=== PATIENT | male | born 1985 ===

== ENCOUNTER 2020-05-02 14:51 | Outpatient (REF) | payer OTHER, SELFPAY | END 2020-05-02 14:52 | disposition home or self-care (01) | LOC: HO.LAB 14:51 | PROVIDERS: Visit Provider Internal Medicine | DX: Z20.828 Contact with and (suspected) exposure to other viral communicable diseases (principal) | CPT/HCPCS: C9803; U0003 ==

== ENCOUNTER 2020-07-03 15:44 | Emergency (ER) | payer OTHER, SELFPAY ==
[2020-07-03 15:53] VITALS: BP 131/65; PULSE 74; RESP 16; TEMP 36.7; O2SAT 98; BMI 27.4
--- NOTE | 2020-07-03 17:24 | XR_ITS ---
EXAMINATION: X-RAY OF THE RIGHT HAND CLINICAL INFORMATION: 34-year-old male patient with swelling of the right hand. COMPARISON: None TECHNIQUE: 4 views of the right hand including the wrist. FINDINGS: There is considerable soft tissue swelling over the dorsum of the right hand at the level of the metacarpal heads. The bones and joints are normal. There is no evidence of fracture, dislocation, or bony destruction. XR/XR hand wrist RT IMPRESSION: Soft tissue swelling. No other findings.
--- NOTE | 2020-07-03 17:40 | ED.EXTPRO ---
HPI - Extremity Problem General Chief complaint: Extremity Injury, Upper Stated complaint: HAND SWELLING Time Seen by Provider: 07/03/20 16:55 Source: patient Mode of arrival: ambulatory Limitations: no limitations History of Present Illness HPI Narrative: Patient presents to ED for swelling and redness on the dorsal aspect of right hand only patient. Patient states last Saturday there was a splinter in the dorsal aspect of his right hand at work which he pulled out and then 2 days later started having swelling. Patient states no red streaks going up the arm or swelling of forearm and upper arm. Patient states no chest pain, shortness of breath, fever, or chills. Patient states he is not an IV drug user. Related Data Previous Rx's Medication Instructions Recorded albuterol sulfate 2 puff INHALATION Q6H PRN #18 g 07/03/20 cephalexin [Keflex] 500 mg PO QID #28 cap 07/03/20 doxycycline hyclate 100 mg PO BID #20 tab 07/03/20 naproxen 500 mg PO BID PRN #20 tab 07/03/20 Allergies Allergy/AdvReac Type Severity Reaction Status Date / Time No Known Allergies Allergy Unverified 03/10/20 19:28 [No Known Allergies*] Review of Systems Review of Systems: Yes all other systems are reviewed and are negative Constitutional: Constitutional: Reports as per HPI and Reports no additional constitutional complaints Eyes: Eyes: Reports as per HPI and Reports no additional eye complaints ENT: Reports system reviewed and no additional complaints, except as documented and Reports as per HPI Cardiovascular: Cardiovascular: Reports as per HPI and Reports no additional cardiovascular complaints Respiratory: Respiratory: Reports as per HPI and Reports no additional respiratory complaints Gastrointestinal: Gastrointestinal: Reports as per HPI and Reports no additional gastrointestinal complaints Genitourinary: Genitourinary: Reports no additional male genitourinary complaints and Reports as per HPI Musculoskeletal: Musculoskeletal: Reports no additional musculoskeletal complaints and Reports as per HPI Comments: RIGHT DORSAL ASPECT OF HAND SWELLING Neurologic: Reports system reviewed and no additional complaints, except as documented and Reports as per HPI Psychiatric: Psychiatric: Reports no additional psychiatric complaints and Reports as per HPI [facility] Past Medical History Medical History Asthma Social History Social History Advance Directives: No Advance Directives Information Provided: No Physical Exam Vital Signs: Vital Signs: Last Vital Signs Temp 98.0 F 07/03/20 15:53 Pulse 74 07/03/20 15:53 Resp 16 07/03/20 15:53 BP 131/65 07/03/20 15:53 Pulse Ox 98 07/03/20 15:53 Body Mass Index 27.4 Const: General: cooperative, healthy appearing, comfortable, no acute distress, well developed, alert, awake and Physically active Orientation/consciousness: patient oriented x3 HENMT: Head: Yes normal to inspection, Yes No palpable skull fracture present, Yes normocephalic, Yes atraumatic and No abrasion Eyes: General: appearance normal, both eyes and all related structures Neck: Neck: Yes normal visual inspection, Yes full ROM, Yes no lymphadenopathy, Yes no meningeal signs, Yes trachea midline, Yes supple and No tender Chest: Chest palpation & inspection: normal inspection of the chest and normal palpation of entire chest wall Resp: Effort & Inspection: normal respiratory effort and able to speak in complete sentences Auscultation: clear to auscultation bilaterally Cardio: Jugular venous distension: no JVD Heart sounds: S1 normal heart sound present and S2 normal heart sound present GI: Inspection: Yes normal to inspection Palpation (GI): Soft to palpation, not firm, nontender, no guarding and not rigid : General: No CVA tenderness and Yes no CVA tenderness Back/Spine/Pelvis: Back: no CVA tenderness, No CVA tenderness and No back tenderness Skin: General skin exam: no rashes or lesions noted and elasticity normal Neuro: General: patient oriented x3, gait normal, no meningeal signs and CN's II-XI intact bilaterally Cranial nerves: Yes CN's II-XII intact bilaterally Extrem: Other: RIGHT HAND POSITIVE FOR SWELLING AND REDNESS OF DORSAL ASPECT OF HAND ONLY. NEGATIVE FOR ANY REDNESS OR SWELLING OF THE PALM. PATIENT ABLE TO FLEX AND EXTEND ALL FINGERS. NEGATIVE FOR RED STREAKS GOING UP THE ARM. FOREARM IS NOT SWOLLEN, UPPER ARM/ HUMERUS NOT SWOLLEN. CAPILLARY REFILL IS INTACT. RADIAL PULSE INTACT. LEFT UPPER EXTREMITY IS NORMAL Psych: Appearance: grossly normal, well kempt and not disheveled Course Course Course Narrative: PATIENT X-RAY TO RULE OUT OSTEOMYELITIS Reevaluation(s) Reevaluation #1: PHYSICAL EXAM DOES NOT INDICATE TENOSYNOVITIS OR LYMPHANGITIS. X-RAY NEGATIVE FOR OSTEOMYELITIS. NOT SUSPECTING DVT. PATIENT WILL BE DISCHARGED WITH KEFLEX AND DOXYCYCLINE. PATIENT EDUCATED ON SIGNS OF TENOSYNOVITIS, LYMPHANGITIS, AND WORSENING CELLULITIS. PATIENT INFORMED HAVE ANY SYMPTOMS TO RETURN TO ED IMMEDIATELY. PATIENT ALSO INFORMS HAVING CHEST PAIN, SHORTNESS OF BREATH, SWELLING OF FOREARM, SWELLING OF UPPER ARM HE SHOULD RETURN TO THE ED IMMEDIATELY TO RULE OUT PE or DVT. PATIENT ALSO REQUESTED IP FOR ALBUTEROL PUMP Time: 17:55 MDM - Extremity (Nontraumatic) MDM Narrative Medical decision making narrative: cELLULITITS Discharge Plan Discharge Clinical Impression: Cellulitis Patient Disposition: Home, Self-Care Instructions: Cellulitis (ED) Additional Instructions: RETURN TO THE ED IMMEDIATELY FOR WORSENING REDNESS, DEVELOPMENT OF RED STREAKS, SWELLING OF FOREARM AND UPPER ARM, CHEST PAIN, SHORTNESS OF BREATH, INABILITY TO FLEX AND EXTEND FINGERS, OR ANY OTHER CONCERNING SYMPTOMS. Please follow-up with PCP Prescriptions: New cephalexin [Keflex] 500 mg capsule 500 mg PO QID Qty: 28 RF: 0 doxycycline hyclate 100 mg tablet 100 mg PO BID Qty: 20 RF: 0 naproxen 500 mg tablet 500 mg PO BID PRN (Reason: pain) Qty: 20 RF: 0 albuterol sulfate 90 mcg/actuation HFA aerosol inhaler 2 puff inhalation Q6H PRN (Reason: shortness of breath or wheezing) Qty: 18 RF: 0 Stand Alone Forms: Work/School Release Discharge Date/Time: 07/03/20 18:13
== END 2020-07-03 18:13 | disposition home or self-care (01) ==
PROVIDERS: Emergency Provider Emergency Medicine
DX: L03.113 Cellulitis of right upper limb (principal); M79.641 Pain in right hand; Z79.899 Other long term (current) drug therapy
CPT/HCPCS: 73110; 73130; 99283

== ENCOUNTER 2020-09-14 12:44 | Emergency (ER) | payer OTHER, SELFPAY ==
[2020-09-14 12:59] VITALS: BP 151/78; PULSE 78; RESP 18; TEMP 36.9; O2SAT 97; BMI 30.4
--- NOTE | 2020-09-14 13:30 | ED_ITS ---
HPI - Asthma General Chief Complaint: Asthma Stated Complaint: sob Time Seen by Provider: 09/14/20 13:30 History of Present Illness HPI Narrative: Patient complains that he is out of his asthma pump and has been using it off and on for several days several times a day and is now out of his pump, he is not short of breath at this moment last use of the pump was this morning He come planes also about intermittent episodes of epigastric pain which last for short while and then go away, pain is described as a burning pain and a bloated feeling after eating, he has not had that pain in over week he has no pain now he has no nausea vomiting diarrhea and he is eating and drinking normally Related Data Previous Rx's Medication Instructions Recorded albuterol sulfate 2 puff INHALATION Q6H PRN #18 g 07/03/20 cephalexin [Keflex] 500 mg PO QID #28 cap 07/03/20 doxycycline hyclate 100 mg PO BID #20 tab 07/03/20 naproxen 500 mg PO BID PRN #20 tab 07/03/20 albuterol sulfate 2 puff INHALATION Q4-6H PRN #8.5 g 09/14/20 famotidine [Pepcid] 20 mg PO BID PRN #30 tab 09/14/20 prednisone 60 mg PO DAILY 4 Days #12 tab 09/14/20 Allergies Allergy/AdvReac Type Severity Reaction Status Date / Time No Known Allergies Allergy Unverified 03/10/20 19:28 [No Known Allergies*] Review of Systems Review of Systems: Positive for intermittent wheezing as well as intermittent burning epigastric pain Negatives are no fever no chills no dizziness no weakness no chest pain no palpitations no fainting no feeling faint, no nausea vomiting or diarrhea, no leg swelling no calf pain or swelling no problems with urination no burning or frequency of urination no rash no numbness or weakness PMFSH Past Medical History Source: nursing notes reviewed Medical History Asthma Social History Social History Alcohol intake: unknown Smoking Status: Unknown if ever smoked Use of substances other than those prescribed or required for medical reasons: Yes Substance Use Type: Heroin Last Used Substance: Just Prior to Admission Advance Directives: No Advance Directives Information Provided: No Physical Exam Vital Signs: Vital Signs: Last Vital Signs Temp 98.5 F 09/14/20 12:59 Pulse 78 09/14/20 12:59 Resp 18 09/14/20 12:59 BP 151/78 H 09/14/20 12:59 Pulse Ox 97 09/14/20 12:59 Body Mass Index 30.4 General appearance no acute distress comfortable relaxed and cooperative The eyes no redness or discharge The pharynx is clear, no redness exudate or swelling, voice is normal The neck is supple, no lymphadenopathy The chest is clear with full symmetric equal breath sounds The heart rate and rhythm regular no murmur Abdomen soft nontender no rebound no guarding Extremities no edema no calf swelling or tenderness, full range of motion x4 Skin no rash Neuro no focal deficit Course Course Course Narrative: Patient is asymptomatic now and is given scripts for Pepcid and albuterol, he has no shortness of breath his lungs are clear and his oxygen and respiratory rate all normal He is advised his blood pressure was elevated and is advised to follow with [facility] doctor for further evaluation Discharge Plan Discharge Clinical Impression: Asthma Patient Disposition: Home, Self-Care Additional Instructions: We refilled her asthma pump medication, and started Pepcid which is an antacid which may be helpful for the intermittent stomach pains We started prednisone which reduces inflammation to help with her asthma Follow with primary care doctor This return any time any worse condition or any concerns Prescriptions: New prednisone 20 mg tablet 60 mg PO DAILY 4 Days Qty: 12 RF: 0 albuterol sulfate 90 mcg/actuation HFA aerosol inhaler 2 puff inhalation Q4-6H PRN (Reason: shortness of breath or wheezing) Qty: 8.5 RF: 0 famotidine [Pepcid] 20 mg tablet 20 mg PO BID PRN (Reason: acid reflux) Qty: 30 RF: 0 No Action cephalexin [Keflex] 500 mg capsule 500 mg PO QID Qty: 28 RF: 0 doxycycline hyclate 100 mg tablet 100 mg PO BID Qty: 20 RF: 0 naproxen 500 mg tablet 500 mg PO BID PRN (Reason: pain) Qty: 20 RF: 0 albuterol sulfate 90 mcg/actuation HFA aerosol inhaler 2 puff inhalation Q6H PRN (Reason: shortness of breath or wheezing) Qty: 18 RF: 0 Stand Alone Forms: Work/School Release Interventions: ED Discharge Assessment Last Done: 09/14/20 14:40 Discharge Date/Time: 09/14/20 14:41
[2020-09-14] MEDS: predniSONE 20 MG TABLET 60 MG PO (14:41)
== END 2020-09-14 14:41 | disposition home or self-care (01) ==
PROVIDERS: Emergency Provider Emergency Medicine
DX: J45.909 Unspecified asthma, uncomplicated (principal); R10.13 Epigastric pain; F11.90 Opioid use, unspecified, uncomplicated
CPT/HCPCS: 99283

== ENCOUNTER 2020-09-16 09:25 | Emergency (ER) | payer OTHER, SELFPAY ==
[2020-09-16 09:29] VITALS: PULSE 73; RESP 18; TEMP 37.5; O2SAT 99; BMI 14.6
[2020-09-16 09:33] VITALS: BP 164/91
--- NOTE | 2020-09-16 09:33 | ECG_ITS ---
Test Reason : OD Blood Pressure : / mmHG Vent. Rate : 074 BPM Atrial Rate : 074 BPM P-R Int : 210 ms QRS Dur : 098 ms QT Int : 334 ms P-R-T Axes : 047 029 048 degrees QTc Int : 370 ms Sinus rhythm with 1st degree A-V block with Premature atrial complexes Otherwise normal ECG No previous ECGs available Referred By: Estuardo Francis Electronically Signed By:YAMINI RANEGL
--- NOTE | 2020-09-16 10:04 | PC.NURSE ---
ATTEMPT TO COMPLETE EKG, PT ROLLING OVER IN BED POOPING ON FLOOR. WHEN ATTEMPT TO AID IN CLEANING PT, PT ROLLS AWAY FROM STAFF AND IS MOVING TO AIM HIS LIQUID STOOL AT MULTIPLE STAFF. PT COVERING CURTAINS, FLOORS ON PURPOSE.
--- NOTE | 2020-09-16 10:41 | PC.NURSE ---
security and language interpreter to bedside. pt refusing to leave. digital media intern to order meds and plan to speak to counselor
--- NOTE | 2020-09-16 11:12 | MHC.RECOVSUP ---
Recovery Support note: Patient is a 35 year old [place] speaking male who presented to [facility] ED due to an overdose. Patient reports taking Suboxone and is feeling severe symptoms of withdrawal. Patient reports a desire to go to detox however he is only interested in going to a local facility. Explained to patient that this may not be an option due to bed availability and that he could continue to take the Suboxone as prescribed if a bed is not secured. Patient acknowledged. This justowriter operator will refer patient to [facility], [facility].
[2020-09-16 12:00] VITALS: RESP 16
--- NOTE | 2020-09-16 12:03 | PC.NURSE ---
RECVD REPORT FROM [facility] AT 1100. PT SUPINE IN BED SLEEPING, RR EVEN UNLABORED, SKIN WPD, NAD. PT AWAITING PROVIDER RE-EVAL AND DISPO. AT 1200 PT CONTINUES TO SLEEPING, NO CHG IN PT STATUS.
[2020-09-16 12:24] VITALS: BP 188/83; PULSE 76; RESP 18; O2SAT 98
[2020-09-16 12:25] VITALS: BP 188/83; PULSE 76
[2020-09-16] MEDS: cloNIDine HCL 0.1 MG TABLET PO (12:25)
[2020-09-16 13:07] LABS: COVID-19 Test Negative (Negative)
--- NOTE | 2020-09-16 13:19 | ED_ITS ---
HPI - General Adult General Chief complaint: General Medical Stated complaint: overdose on heroin Time Seen by Provider: 09/16/20 09:33 Source: patient Mode of arrival: ambulatory Limitations: no limitations History of Present Illness HPI narrative: 35-year-old male presents with complaint of heroin overdose after family called. States that now feels like he is nauseated and has diarrhea he also uses Suboxone sometimes. Onset (ago): hour(s) Severity: moderate Relieving factors: none Exacerbating factors: none Treatments prior to arrival: none Related Data Previous Rx's Medication Instructions Recorded albuterol sulfate 2 puff INHALATION Q6H PRN #18 g 07/03/20 cephalexin [Keflex] 500 mg PO QID #28 cap 07/03/20 doxycycline hyclate 100 mg PO BID #20 tab 07/03/20 naproxen 500 mg PO BID PRN #20 tab 07/03/20 albuterol sulfate 2 puff INHALATION Q4-6H PRN #8.5 g 09/14/20 famotidine [Pepcid] 20 mg PO BID PRN #30 tab 09/14/20 prednisone 60 mg PO DAILY 4 Days #12 tab 09/14/20 Allergies Allergy/AdvReac Type Severity Reaction Status Date / Time No Known Allergies Allergy Unverified 03/10/20 19:28 [No Known Allergies*] Review of Systems Review of Systems: Constitutional: No Weight loss, No Fever, No Chills, No Night Sweats, No Fatigue, No Malaise ENT/Mouth: No Hearing loss, No Ear Pain, No Nasal Congestion, No Sinus Pain, No Hoarseness, No sore throat, No Rhinorrhea, No Swallowing Difficulty Eyes: No Eye Pain, No Swelling, No Redness, No Foreign Body, No Discharge, No Vision Changes Cardiovascular: No Chest Pain, No SOB, No Dyspnea on Exertion, No Orthopnea, No Edema, No Palpitations Respiratory: No Cough, No Sputum, No Wheezing, No Smoke Exposure, No Dyspnea Gastrointestinal: + Nausea, No Vomiting, + Diarrhea, No Constipation, No abdominal Pain, No Hematochezia, No Melena Genitourinary: no irregular bleeding, No Dysuria, No Urinary Frequency, No Hematuria, No Urinary Incontinence, No Urgency, No Flank Pain, No Urinary Flow Changes, No Hesitancy Musculoskeletal: No joint pain, No Myalgias, No Joint Swelling Skin: No Skin Lesions, No rash Neuro: No Weakness, No Numbness, No Paresthesias, No Loss of Consciousness, No Dizziness, No Headache Psych: No Anxiety/Panic, No Depression, No SI/HI/AH/VH, No Social Issues Heme/Lymph: No Bruising, No Bleeding,No Lymphadenopathy Endocrine: No Polyuria, No Polydipsia, No Temperature Intolerance Yes all other systems are reviewed and are negative [facility] Past Medical History Medical History (Updated 09/25/20 @ 20:29 by Estuardo Francis NP) Asthma Cocaine substance abuse Social History Social History Alcohol intake: unknown Smoking Status: Unknown if ever smoked Use of substances other than those prescribed or required for medical reasons: Yes Substance Use Type: Heroin Last Used Substance: Just Prior to Admission Advance Directives: No Advance Directives Information Provided: No Physical Exam Vital Signs: Vital Signs: Last Vital Signs Temp 99.5 F 09/16/20 09:29 Pulse 76 09/16/20 12:25 Resp 18 09/16/20 12:24 BP 188/83 H 09/16/20 12:25 Pulse Ox 98 09/16/20 12:24 Body Mass Index 14.6 Reviewed Const: General: cooperative and healthy appearing; No acute distress or intoxicated appearing Nutritional Appearance: average body habitus Orientation/consciousness: patient oriented x3 HENMT: Head: Yes normal to inspection Ears: hearing grossly normal bilaterally Eyes: General: appearance normal, both eyes and all related structures Visual Hyman: normal visual hyman by confrontation Neck: Neck: Yes normal visual inspection, No positive Brudzinski's sign, No positive Kernig's sign and No tender Thyroid: Thyroid normal Chest: Chest palpation & inspection: normal inspection of the chest Breast/axilla palpation: normal palpation of the breasts Resp: Effort & Inspection: normal respiratory effort Auscultation: clear to auscultation bilaterally Cardio: Jugular venous distension: no JVD Rhythm: regular rhythm Heart sounds: S1 normal heart sound present and S2 normal heart sound present GI: Inspection: Yes normal to inspection Palpation (GI): Soft to palpation Percussion: Yes normal to percussion Auscultation: normal bowel sounds : General: Yes no CVA tenderness Back/Spine/Pelvis: Back: no CVA tenderness Skin: General skin exam: no rashes or lesions noted Neuro: General: patient oriented x3 Extrem: General: Yes normal to inspection Course Course Course Narrative: Observed several hours no signs of symptoms of toxicity. Has been alert and oriented x3 has a detox services set up will go there this evening. Offers no other complaints. Stable for discharge. Medical Decision Making Lab Data Labs: Lab Results 09/16/20 Range/Units 12:42 COVID-19 ([facility]) Negative (Negative) COVID-19 Clin Com See Note Discharge Plan Discharge Clinical Impression: Heroin overdose Patient Disposition: Home, Self-Care Instructions: Adult Overdose (ED), Opioid Use Disorder (ED) Additional Instructions: Please go to detox at 18:00 as planned at [place] Your COVID test was negative today Return if any concerns or worsening symptoms Thank you Prescriptions: No Action cephalexin [Keflex] 500 mg capsule 500 mg PO QID Qty: 28 RF: 0 doxycycline hyclate 100 mg tablet 100 mg PO BID Qty: 20 RF: 0 naproxen 500 mg tablet 500 mg PO BID PRN (Reason: pain) Qty: 20 RF: 0 albuterol sulfate 90 mcg/actuation HFA aerosol inhaler 2 puff inhalation Q6H PRN (Reason: shortness of breath or wheezing) Qty: 18 RF: 0 prednisone 20 mg tablet 60 mg PO DAILY 4 Days Qty: 12 RF: 0 albuterol sulfate 90 mcg/actuation HFA aerosol inhaler 2 puff inhalation Q4-6H PRN (Reason: shortness of breath or wheezing) Qty: 8.5 RF: 0 famotidine [Pepcid] 20 mg tablet 20 mg PO BID PRN (Reason: acid reflux) Qty: 30 RF: 0 Referrals: Physician,Unknown [Primary Care Provider] - 1 day (Go to [place] today has 6 cm) Interventions: ED Discharge Assessment Last Done: 09/16/20 13:36 Discharge Date/Time: 09/16/20 13:37
--- NOTE | 2020-09-16 15:06 | MHC.RECOVSUP ---
Recovery Support note: Patient accepted to [facility]. Negative covid result faxed. N-N complete. Patient transported [place] [facility] [place].
== END 2020-09-16 13:37 | disposition home or self-care (01) ==
PROVIDERS: Nurse Practitioner Primary Care; Emergency Provider Emergency Medicine Emergency Medical Services
DX: T40.1X1A Poisoning by heroin, accidental (unintentional), initial encounter (principal); Y92.9 Unspecified place or not applicable; Z20.822 Contact with and (suspected) exposure to COVID-19
CPT/HCPCS: 36415; 87635; 93005; 99285

== ENCOUNTER 2020-12-27 07:08 | Emergency (ER) | payer OTHER, SELFPAY ==
--- NOTE | ~2020-12-27 | XR_ITS ---
EXAMINATION: XR CHEST CLINICAL INFORMATION: Dyspnea COMPARISON: 2 view chest radiographs 10/03/2017 TECHNIQUE: Portable upright AP view of the chest was obtained. FINDINGS: There are low lung volumes. The lungs are grossly clear with no airspace consolidation or definite groundglass opacity. The vascularity is normal. No pneumothorax. The costophrenic sulci are well-defined. The heart is normal in size. The hilar and mediastinal contours and bony structures are unremarkable. XR/XR chest 1V IMPRESSION: Low lung volumes. Lungs grossly clear.
--- NOTE | 2020-12-27 07:12 | ED_ITS ---
HPI - Asthma General Chief Complaint: Upper Respiratory Symptoms Stated Complaint: difficulty breathing - asthma Time Seen by Provider: 12/27/20 07:10 Source: patient and educational interpreter Mode of arrival: ambulatory Limitations: no limitations History of Present Illness HPI Narrative: 35 yo male with hx of asthma still smoking which triggered an attack last night tried neb and INH without relief complaint: asthma attack Onset (ago): day(s) (1) Severity: severe Context: smoke exposure Associated symptoms: dry cough Asthma History: childhood onset Treatments Prior to Arrival: inhaled bronchodilator Related Data Previous Rx's Medication Instructions Recorded albuterol sulfate 2 puff INHALATION Q6H PRN #18 g 07/03/20 cephalexin [Keflex] 500 mg PO QID #28 cap 07/03/20 doxycycline hyclate 100 mg PO BID #20 tab 07/03/20 naproxen 500 mg PO BID PRN #20 tab 07/03/20 albuterol sulfate 2 puff INHALATION Q4-6H PRN #8.5 g 09/14/20 famotidine [Pepcid] 20 mg PO BID PRN #30 tab 09/14/20 prednisone 60 mg PO DAILY 4 Days #12 tab 09/14/20 albuterol sulfate 2.5 mg INHALATION Q4-6H PRN #75 ml 12/27/20 prednisone 60 mg PO DAILY 5 Days #15 tab 12/27/20 Allergies Allergy/AdvReac Type Severity Reaction Status Date / Time No Known Allergies Allergy Unverified 03/10/20 19:28 [No Known Allergies*] Review of Systems Review of Systems: Constitutional : No Fever, No Chills ENT/Mouth : No Hoarseness, No sore throat, No Rhinorrhea Eyes: No Redness, No Discharge, No Vision Changes Cardiovascular : No Chest Pain, positive SOB, positive Dyspnea on Exertion, No Edema Respiratory : positive Cough, No Sputum, positive Wheezing, Gastrointestinal : No Nausea, No Vomiting, No Diarrhea, No abdominal Pain Genitourinary : No Dysuria, No Hematuria Musculoskeletal : No joint pain, No Myalgias Skin : No rash Neuro : No Weakness, No Numbness, No Headache Psych : No anxiety, depression Heme/Lymph: No Bruising, No Bleeding Endocrine : No Polyuria, No Polydipsia All other systems reviewed and are negative PMFSH Past Medical History Attestation statement: The following information was validated with the patient. Medical History Asthma Cocaine substance abuse Social History Social History (Updated 12/27/20 @ 07:24 by Renuka Wild DO) Alcohol intake: unknown Patient Tobacco Use Status: Never used Tobacco Smoked in Last 30 Days: No Use of substances other than those prescribed or required for medical reasons: No Substance Use Type: Heroin Advance Directives: No Advance Directives Information Provided: No Physical Exam Vital Signs: Vital Signs: Last Vital Signs Temp 98.7 F 12/27/20 07:23 Pulse 104 H 12/27/20 10:14 Resp 18 12/27/20 10:14 BP 159/88 H 12/27/20 10:14 Pulse Ox 95 12/27/20 09:20 Body Mass Index 31.9 Appearance: Alert. Oriented X3. Anxious mild acute distress. Eyes: Pupils equal, round and reactive to light. ENT: Pharynx normal. Neck: Normal inspection. Neck supple. CVS: tachycardic heart rate and rhythm. Pulses normal. Respiratory: pos respiratory distress short phrases, retractions tachypnea. Breath sounds diffuse insp and exp wheezes Abdomen: Soft and nontender. Skin: Skin warm and clammy. Normal skin color. Normal skin turgor. Extremities: No lower extremity edema. No calf ttp Neuro: Oriented X 3. No motor deficit. No sensory deficit. Course Course Course Narrative: still tight and wheezy repeat 5mg neb ordered will reassess afterwards the patient is refusing admission at this time ,he is mildy hypoxic, he wants to go home, alert and oriented, I offered admission but he declines we discussed the asthma and lower O2 sats 92%, the educational interpreter was present we offered admission explained he is wheezing sats are 92-94% he states he is fine and wants to leave, he is answering questions appropriately, instructed to come back at any time. MDM - Asthma MDM Narrative Medical decision making narrative: 35 yo male with hx of asthma still smoking which triggered an attack last night tried neb and INH without relief at this time hour long 10mg neb ordered, IV steroids, IV magnesium, labs/CXR - COVID swab, asthma attack likely triggered by smoking cigarettes, dispo per results and improvement Lab Data Result diagrams: 12/27/20 07:22 12/27/20 07:21 Labs: Lab Results 07/06/21 07/06/21 07/06/21 Range/Units 07:21 07:22 07:22 WBC 8.7 (4.8-10.8) X10*3/uL RBC 5.08 (4.60-5.80) X10*6/uL Hgb 14.4 (14.0-18.0) g/dl Hct 45.8 (42-52) % MCV 90.2 (80-98) fL MCH 28.3 (27.0-33.0) pg MCHC 31.4 (31.0-36.0) g/dl RDW 11.7 (11.0-16.0) % Plt Count 172 (160-400) X10*3/uL MPV 8.6 L (9.4-12.4) fL Immature Gran % (Auto) 0.3 (0.0-0.4) % Neut % (Auto) 70.3 (45-73) % Lymph % (Auto) 20.2 (20-40) % [place] % (Auto) 6.7 (2-11) % Eos % (Auto) 2.2 (0-4) % Baso % (Auto) 0.3 (0-2) % Lymph # (Auto) 1.8 (1.2-4.9) X10*3/uL [place] # (Auto) 0.6 (0.1-1.2) X10*3/uL Eos # (Auto) 0.2 (0.0-0.4) X10*3/uL Baso # (Auto) 0.0 (0.0-0.2) X10*3/uL Abs Immat Gran (auto) 0.03 (0.00-0.03) X10*3/uL Absolute Neuts (auto) 6.1 (2.0-8.3) X10*3/uL Absolute Nucleated RBC 0.000 (0.0-0.012) X10*3/uL Nucleated RBC % (auto) 0.0 (0.0-0.2) /100WBC Sodium 140 (135-145) mmol/L Potassium 3.8 (3.3-5.1) mmol/L Chloride 103 (96-108) mmol/L Carbon Dioxide 27 (22-29) mmol/L Anion Gap 14 (12-20) BUN 10 (9-16) mg/dL Creatinine 0.87 (0.5-1.4) mg/dL Estim Creat Clear Calc 131.3 Estimated GFR > 60 Random Glucose 121 H (60-115) mg/dL Calcium 9.6 (8.4-10.2) mg/dL Magnesium 1.8 (1.6-2.6) mg/dL COVID-19 ([facility]) Negative (Negative) COVID-19 Clin Com See Note Critical Care Time Critical Care Time Critical Care Time: Yes Total Critical Care Time: 60 Attestation: hour long nebs, reassessments, attempts at admission, repeat 5mg neb I attest to this time spent taking care of the patient Discharge Plan Discharge Clinical Impression: Asthma attack Qualifiers: Asthma severity: moderate Asthma persistence: persistent Qualified Code(s): J 45.41 - Moderate persistent asthma with (acute) exacerbation Patient Disposition: Home, Self-Care Instructions: Asthma (ED) Additional Instructions: return to ED for any worsening symptoms or concerns YOU WERE OFFERED ADMISSION BUT REFUSED PLEASE COME BACK AT ANY TIME Prescriptions: New albuterol sulfate 2.5 mg /3 mL (0.083 %) solution for nebulization 2.5 mg inhalation Q4-6H PRN (Reason: bronchospasm) Qty: 75 RF: 0 prednisone 20 mg tablet 60 mg PO DAILY 5 Days Qty: 15 RF: 0 No Action cephalexin [Keflex] 500 mg capsule 500 mg PO QID Qty: 28 RF: 0 doxycycline hyclate 100 mg tablet 100 mg PO BID Qty: 20 RF: 0 naproxen 500 mg tablet 500 mg PO BID PRN (Reason: pain) Qty: 20 RF: 0 albuterol sulfate 90 mcg/actuation HFA aerosol inhaler 2 puff inhalation Q6H PRN (Reason: shortness of breath or wheezing) Qty: 18 RF: 0 prednisone 20 mg tablet 60 mg PO DAILY 4 Days Qty: 12 RF: 0 albuterol sulfate 90 mcg/actuation HFA aerosol inhaler 2 puff inhalation Q4-6H PRN (Reason: shortness of breath or wheezing) Qty: 8.5 RF: 0 famotidine [Pepcid] 20 mg tablet 20 mg PO BID PRN (Reason: acid reflux) Qty: 30 RF: 0 Stand Alone Forms: Work/School Release Print Language: Arabic
[2020-12-27 07:23] VITALS: BP 165/90; PULSE 105; RESP 26; TEMP 37.1; O2SAT 90; BMI 31.9
[2020-12-27] MEDS: Albuterol Sulfate (0.083%) 2.5 MG/3 ML VIAL.NEB 10 MG INHALE (07:31)
[2020-12-27 07:32] LABS: MANUAL DIFF FLAG NO
[2020-12-27 07:33] VITALS: O2SAT 92
[2020-12-27 07:34] LABS: Basophils Percent Auto 0.3 % (0-2); Eosinophils Absolute Auto 0.2 X10*3/uL (0.0-0.4); Eosinophils Percent Auto 2.2 % (0-4); Hematocrit 45.8 % (42-52); Hemoglobin 14.4 g/dl (14.0-18.0); Imm Gran Abs Auto 0.03 X10*3/uL (0.00-0.03); Imm Gran Pct Auto 0.3 % (0.0-0.4); Lymphocytes Absolute Auto 1.8 X10*3/uL (1.2-4.9); Lymphocytes Percent Auto 20.2 % (20-40); Mean Corpuscular HGB Conc 31.4 g/dl (31.0-36.0); Mean Corpuscular Hemoglobin 28.3 pg (27.0-33.0); Mean Corpuscular Volume 90.2 fL (80-98); Mean Platelet Volume 8.6 fL (9.4-12.4); Monocytes Absolute Auto 0.6 X10*3/uL (0.1-1.2); Monocytes Percent Auto 6.7 % (2-11); Neutrophils Absolute Auto 6.1 X10*3/uL (2.0-8.3); Neutrophils Percent Auto 70.3 % (45-73); Platelet Count 172 X10*3/uL (160-400); Red Blood Count 5.08 X10*6/uL (4.60-5.80); Red Cell Distribution Width 11.7 % (11.0-16.0); White Blood Count 8.7 X10*3/uL (4.8-10.8)
[2020-12-27] MEDS: Magnesium Sulfate/H2O 2 GM/50 ML PIGGYBACK IV (07:42)
[2020-12-27] MEDS: methylPREDNISolone Sod Succ 125 MG/2 ML VIAL IVPUSH (07:42)
[2020-12-27] MEDS: 0.9 % Sodium Chloride 1,000 ML 999 ML IVCONT (07:42)
[2020-12-27 08:02] LABS: COVID-19 Test Negative (Negative)
[2020-12-27 08:11] VITALS: BP 172/108; PULSE 112; RESP 16; O2SAT 97
[2020-12-27 08:17] LABS: Anion Gap 14 (12-20); Blood Urea Nitrogen 10 mg/dL (9-16); Calcium 9.6 mg/dL (8.4-10.2); Carbon Dioxide 27 mmol/L (22-29); Chloride 103 mmol/L (96-108); Creatinine Clr Calc Pharmacy 131.3; Estimated Glomerular Filt Rate > 60; Glucose Random 121 mg/dL (60-115); Magnesium 1.8 mg/dL (1.6-2.6); Potassium 3.8 mmol/L (3.3-5.1); Sodium 140 mmol/L (135-145)
[2020-12-27 08:43] VITALS: PULSE 112; O2SAT 92
[2020-12-27] MEDS: Albuterol Sulfate (0.083%) 2.5 MG/3 ML VIAL.NEB 5 MG INHALE (08:43)
[2020-12-27 09:20] VITALS: BP 159/105; PULSE 112; RESP 20; O2SAT 95
[2020-12-27 10:14] VITALS: BP 159/88; PULSE 104; RESP 18
== END 2020-12-27 10:45 | disposition home or self-care (01) ==
PROVIDERS: Emergency Provider Emergency Medicine
DX: J45.41 Moderate persistent asthma with (acute) exacerbation (principal); R09.02 Hypoxemia; F17.210 Nicotine dependence, cigarettes, uncomplicated; Z79.899 Other long term (current) drug therapy; Z20.822 Contact with and (suspected) exposure to COVID-19
CPT/HCPCS: 36415; 71045; 80048; 83735; 85025; 87635; 94640; 94644; 96361; 96365; 96366; 96375; 99284; 99291; J2930; J3475

== ENCOUNTER 2022-03-24 16:40 | Emergency (ER) | payer MEDICAID, SELFPAY ==
--- NOTE | ~2022-03-24 | XR_ITS ---
EXAMINATION: XR CHEST CLINICAL INFORMATION: Chest discomfort COMPARISON: 12/27/2020 TECHNIQUE: 2 views of the chest were obtained. FINDINGS: No significant abnormality is noted involving the heart, lungs, mediastinum, bony thorax or soft tissues. XR/XR chest 2V IMPRESSION: Unremarkable examination.
[2022-03-24 16:55] VITALS: BP 148/80; PULSE 71; RESP 18; TEMP 37.3; O2SAT 96; BMI 31.1
[2022-03-24 17:13] LABS: MANUAL DIFF FLAG NO
[2022-03-24 17:25] LABS: Basophils Percent Auto 0.3 % (0-2); Eosinophils Absolute Auto 0.4 X10*3/uL (0.0-0.4); Eosinophils Percent Auto 5.1 % (0-4); Hemoglobin 14.6 g/dl (14.0-18.0); Imm Gran Abs Auto 0.01 X10*3/uL (0.00-0.03); Imm Gran Pct Auto 0.1 % (0.0-0.4); Lymphocytes Absolute Auto 1.9 X10*3/uL (1.2-4.9); Lymphocytes Percent Auto 28.3 % (20-40); Mean Corpuscular HGB Conc 32.4 g/dl (31.0-36.0); Mean Corpuscular Hemoglobin 27.5 pg (27.0-33.0); Mean Corpuscular Volume 84.7 fL (80.0-98.0); Mean Platelet Volume 8.4 fL (9.4-12.4); Monocytes Absolute Auto 0.5 X10*3/uL (0.1-1.2); Monocytes Percent Auto 7.5 % (2-11); Neutrophils Percent Auto 58.7 % (45-73); Platelet Count 187 X10*3/uL (160-400); Red Blood Count 5.31 X10*6/uL (4.60-5.80); Red Cell Distribution Width 11.7 % (11.0-16.0); White Blood Count 6.8 X10*3/uL (4.8-10.8)
[2022-03-24 17:47] LABS: Alanine Aminotransferase 19 U/L (0-40); Albumin Level 4.4 g/dL (3.5-5.0); Alkaline Phosphatase 87 U/L (39-117); Anion Gap 17 (12-20); Aspartate Amino Transferase 19 U/L (5-37); Bilirubin Total 1.5 mg/dL (0.0-1.0); Blood Urea Nitrogen 10 mg/dL (9-16); Calcium 9.3 mg/dL (8.4-10.2); Carbon Dioxide 23 mmol/L (22-29); Chloride 103 mmol/L (96-108); Creatinine Clr Calc Pharmacy 134.8; Estimated Glomerular Filt Rate > 60; Glucose Random 107 mg/dL (60-115); Potassium 4.1 mmol/L (3.3-5.1); Sodium 139 mmol/L (135-145); Total Protein 7.1 g/dL (6.5-8.0)
--- NOTE | 2022-03-24 19:37 | ED_ITS ---
HPI - General Adult General Chief complaint: General Medical Stated complaint: chest pain ,congestion Time Seen by Provider: 03/24/22 19:37 Source: patient Mode of arrival: ambulatory Limitations: no limitations History of Present Illness HPI narrative: Patient is a 36 year old male presenting to the emergency department today with burning sensation in his chest and feeling like food sometimes gets stuck. Patient states that sometimes when he eats, he feels like things get stuck. Patient states that he feels a burning sensation afterwards. Patient states that he also needs a refill on his inhaler for his asthma. Patient denies any current dizziness, lightheadedness, abdominal pain, nausea, vomiting, fever, chills, blurry vision, double vision, loss of vision, chest pain, difficulty breathing, shortness of breath, back pain, night sweats, pain with urination, increased urinary frequency, increased urinary urgency, blood in his urine or stool, syncope or a near syncopal episode, recent trauma or falls, bowel incontinence, bladder incontinence, bowel retention, bladder retention, or any other complaints at this time. Onset (ago): day(s) Radiation: non-radiation Severity: mild Severity scale (1-10): 2 Quality: burning and dull Pain Consistency: intermittent and now resolved Relieving factors: none Exacerbating factors: eating Associated symptoms: denies other symptoms Treatments prior to arrival: none Related Data Previous Rx's Medication Instructions Recorded albuterol sulfate 90 mcg/actuation 2 puff inhalation Q6H PRN 07/03/20 aerosol inhaler shortness of breath or wheezing #18 grams cephalexin 500 mg capsule (Keflex) 500 mg PO QID CELLULITIS #28 caps 07/03/20 doxycycline hyclate 100 mg tablet 100 mg PO BID cellulitis #20 tabs 07/03/20 naproxen 500 mg tablet 500 mg PO BID PRN pain #20 tabs 07/03/20 albuterol sulfate 90 mcg/actuation 2 puff inhalation Q4-6H PRN 09/14/20 aerosol inhaler shortness of breath or wheezing #8.5 grams famotidine 20 mg tablet (Pepcid) 20 mg PO BID PRN acid reflux #30 09/14/20 tabs prednisone 20 mg tablet 60 mg PO DAILY 4 days #12 tabs 09/14/20 albuterol sulfate 2.5 mg/3 mL 2.5 mg (3 mL) inhalation Q4-6H PRN 12/27/20 (0.083 %) solution for nebulization bronchospasm #75 mL prednisone 20 mg tablet 60 mg PO DAILY 5 days #15 tabs 12/27/20 albuterol sulfate 90 mcg/actuation 1 inh inhalation QID PRN shortness 03/24/22 aerosol inhaler of breath or wheezing #6.7 grams aluminum-mag hydroxide-simethicone 5 ml PO QID PRN epigastric pain 03/24/22 400 mg-400 mg-40 mg/5 mL oral susp #100 mL (Maalox Maximum Strength) pantoprazole 20 mg tablet,delayed 20 mg PO DAILY #14 tabs 03/24/22 release (Protonix) Allergies Allergy/AdvReac Type Severity Reaction Status Date / Time No Known Allergies Allergy Unverified 03/10/20 19:28 [No Known Allergies*] Review of Systems Constitutional: Constitutional: Reports no additional constitutional complaints, Denies chills, Denies fever(s) and Denies night sweats Eyes: Eyes: Reports no additional eye complaints, Denies blurry vision, Denies change in vision, Denies diplopia, Denies eye discharge, Denies loss of vision and Denies eye pain ENT: Denies dizziness Cardiovascular: Cardiovascular: Reports no additional cardiovascular complaints, Denies chest pain, Denies lightheadedness, Denies Loss of Consciousness and Denies dyspnea Respiratory: Respiratory: Reports no additional respiratory complaints and Denies dyspnea Gastrointestinal: Gastrointestinal: Reports no additional gastrointestinal complaints, Reports abdominal pain (epigastric pain, resolved), Denies melena, Denies hematochezia, Denies change in bowel habits and Denies change in stool character Genitourinary: Genitourinary: Reports no additional male genitourinary complaints, Denies hematuria, Denies oliguria, Denies difficulty urinating, De nies dysuria, Denies urinary frequency, Denies urinary hesitancy, Denies urinary incontinence and Denies urinary urgency Musculoskeletal: Musculoskeletal: Reports no additional musculoskeletal complaints, Denies numbness and Denies tingling Neurologic: Denies dizziness, Denies loss of vision, Denies numbness and De nies tingling Psychiatric: Psychiatric: Reports no additional psychiatric complaints Endocrine: Endocrine: Reports no additional endocrine complaints Hematologic/Lymphatic: Hematologic/Lymphatic: Reports no additional hematologic/lymphatic complaints Allergic/Immunologic: Allergic/Immunologic: Reports no additional allergic/immunologic complaints [facility] Past Medical History Attestation statement: The following information was validated with the patient. Source: old records reviewed Medical History Asthma Cocaine substance abuse Social History Social History Alcohol intake: unknown Patient Tobacco Use Status: Never used Tobacco Substance Use Type: Heroin Advance Directives: No Advance Directives Information Provided: No Physical Exam ED Vital Signs: Vital Signs - 24 hr 03/24/22 16:55 Temperature 99.2 F Pulse Rate 71 Respiratory Rate 18 Blood Pressure 148/80 H Pulse Oximetry 96 Oxygen Delivery Method Room Air BMI result Body Mass Index 31.1 Const General: cooperative, no acute distress, alert and awake Nutritional Appearance: well nourished Orientation/consciousness: patient oriented x3 Limitations: no limitations HENMT Head: Yes normal to inspection and Yes atraumatic Ears: hearing grossly normal bilaterally and external ears normal General nose exam: Normal external nose present, no nasal discharge noted and no epistaxis Face and sinus: Yes normal facial exam, No abrasion and No laceration Mouth: Normal oral and palatal mucosa present, no drooling and no muffled voice Eyes General: appearance normal, both eyes and all related structures Periorbital: periorbital findings normal Eyelids: Yes eyelids normal Conjunctivae: conjunctivae normal Pupils: Equal, round and reactive pupils present EOM: EOMs intact bilaterally Neck Neck: Yes normal visual inspection, Yes full ROM and Yes no lymphadenopathy Chest Chest palpation & inspection: normal inspection of the chest Resp Effort & Inspection: normal respiratory effort and able to speak in complete sentences Auscultation: clear to auscultation bilaterally Cardio Rate: regular rate Rhythm: regular rhythm GI Inspection: Yes normal to inspection Palpation (GI): Soft to palpation, not firm, nontender, no guarding and not rigid Neuro General: patient oriented x3 and moves all extremities Cranial nerves: Yes Equal, round and reactive pupils present Cognition (Neuro): normal cognition Motor exam (neuro): 5/5 motor strength present throughout Sensory Exam: Normal double simultaneous stimulation for sensation Coordination: [id number] test normal Extrem General: Yes normal to inspection, Yes full ROM and Yes capillary refill normal Psych Appearance: grossly normal Mental Status: mental status grossly normal Affect: normal affect Attitude: cooperative Thought process: Normal thought process present Thought content: Normal thought content present Insight: Good insight present (Psych) Medical Decision Making MDM Narrative Medical decision making narrative: Patient is a 36 year old male presenting to the emergency department today with intermittent epigastric pain and requesting an inhaler refill. Patient's physical exam was unremarkable. Patient's blood work was unremarkable. Patient's chest x-ray showed no acute process. Patient's clinical presentation is most consistent with GERD. I explained my physical exam findings as well as all test results to the patient. I answered all questions asked by the patient. I stressed the importance of the patient taking his medication as prescribed. I stressed the importance of the patient following up with his primary care pr ovider and a GI specialist. I stressed the importance of the patient returning to the emergency department immediately if his symptoms were to worsen or if he were to develop any dizziness, shortness of breath, difficulty breathing, chest pain, blurry vision, loss of vision, nausea, vomiting, abdominal pain, fever, chills, back pain, or any other complaints. Patient verbalized agreement and understanding with this treatment plan and discharge. Medical Records Medical records reviewed: Yes I reviewed the patient's medical records. Lab Data Lab results reviewed: Yes I reviewed the patient's lab results. Result diagrams: 03/24/22 17:08 03/24/22 17:08 Labs: Lab Results 03/24/22 03/24/22 03/24/22 Range/Units 17:08 17:08 19:36 WBC 6.8 (4.8-10.8) X10*3/uL RBC 5.31 (4.60-5.80) X10*6/uL Hgb 14.6 (14.0-18.0) g/dl Hct 45.0 (42.0-52.0) % MCV 84.7 (80.0-98.0) fL MCH 27.5 (27.0-33.0) pg MCHC 32.4 (31.0-36.0) g/dl RDW 11.7 (11.0-16.0) % Plt Count 187 (160-400) X10*3/uL MPV 8.4 L (9.4-12.4) fL Immature Gran % (Auto) 0.1 (0.0-0.4) % Neut % (Auto) 58.7 (45-73) % Lymph % (Auto) 28.3 (20-40) % [place] % (Auto) 7.5 (2-11) % Eos % (Auto) 5.1 H (0-4) % Baso % (Auto) 0.3 (0-2) % Lymph # (Auto) 1.9 (1.2-4.9) X10*3/uL [place] # (Auto) 0.5 (0.1-1.2) X10*3/uL Eos # (Auto) 0.4 (0.0-0.4) X10*3/uL Baso # (Auto) 0.0 (0.0-0.2) X10*3/uL Abs Immat Gran (auto) 0.01 (0.00-0.03) X10*3/uL Absolute Neuts (auto) 4.0 (2.0-8.3) x10*3/uL Absolute Nucleated RBC 0.000 (0.0-0.012) X10*3/uL Nucleated RBC % (auto) 0.0 (0.0-0.2) /100WBC Sodium 139 (135-145) mmol/L Potassium 4.1 (3.3-5.1) mmol/L Chloride 103 (96-108) mmol/L Carbon Dioxide 23 (22-29) mmol/L Anion Gap 17 (12-20) BUN 10 (9-16) mg/dL Creatinine 0.83 (0.5-1.4) mg/dL Estim Creat Clear Calc 134.8 Estimated GFR > 60 Random Glucose 107 (60-115) mg/dL Calcium 9.3 (8.4-10.2) mg/dL Total Bilirubin 1.5 H (0.0-1.0) mg/dL AST 19 (5-37) U/L ALT 19 (0-40) U/L Alkaline Phosphatase 87 (39-117) U/L Total Protein 7.1 (6.5-8.0) g/dL Albumin 4.4 (3.5-5.0) g/dL COVID-19 ([facility]) Negative (Negative) COVID-19 Clin Com See Note Imaging Data Chest x-ray: Attestation: I personally reviewed and interpreted this imaging study as follows: My impression: No acute process. Radiologist's impression: EXAMINATION: XR CHEST CLINICAL INFORMATION: Chest discomfort COMPARISON: 12/27/2020 TECHNIQUE: 2 views of the chest were obtained. FINDINGS: No significant abnormality is noted involving the heart, lungs, mediastinum, bony thorax or soft tissues. XR/XR chest 2V IMPRESSION: Unremarkable examination. Dictated By: Jeevan Pardo MD Signed By: Electronically signed by Jeevan Pardo MD 03/24/221811 Discharge Plan Discharge Clinical Impression: GERD (gastroesophageal reflux disease) Patient Disposition: Home, Self-Care Instructions: Gastroesophageal Reflux Disease (ED) Additional Instructions: Follow up with your primary care provider. Return to the emergency department immediately if your symptoms worsen or if you develop any dizziness, shortness of breath, difficulty breathing, chest pain, blurry vision, loss of vision, nausea, vomiting, abdominal pain, fever, chills, back pain, or any other complaints. Prescriptions: New albuterol sulfate 90 mcg/actuation HFA aerosol inhaler 1 inh inhalation QID PRN (Reason: shortness of breath or wheezing) Qty: 6.7 0RF alum-mag hydroxide-simeth [Maalox Maximum Strength] 400-400-40 mg/5 mL suspension 5 ml PO QID PRN (Reason: epigastric pain) Qty: 100 0RF pantoprazole [Protonix] 20 mg tablet,delayed release (DR/EC) 20 mg PO DAILY Qty: 14 0RF No Action cephalexin [Keflex] 500 mg capsule 500 mg PO QID Qty: 28 0RF doxycycline hyclate 100 mg tablet 100 mg PO BID Qty: 20 0RF naproxen 500 mg tablet 500 mg PO BID PRN (Reason: pain) Qty: 20 0RF albuterol sulfate 90 mcg/actuation HFA aerosol inhaler 2 puff inhalation Q6H PRN (Reason: shortness of breath or wheezing) Qty: 18 0RF albuterol sulfate 2.5 mg /3 mL (0.083 %) solution for nebulization 2.5 mg inhalation Q4-6H PRN (Reason: bronchospasm) Qty: 75 0RF prednisone 20 mg tablet 60 mg PO DAILY 5 Days Qty: 15 0RF prednisone 20 mg tablet 60 mg PO DAILY 4 Days Qty: 12 0RF albuterol sulfate 90 mcg/actuation HFA aerosol inhaler 2 puff inhalation Q4-6H PRN (Reason: shortness of breath or wheezing) Qty: 8.5 0RF famotidine [Pepcid] 20 mg tablet 20 mg PO BID PRN (Reason: acid reflux) Qty: 30 0RF Referrals: [facility] [place] [facility] [place] [facility] [Provider Group] (Call to establish and follow up with a GI specialist. ) [facility] [place] Family Medicine [Provider Group] (Call to establish and follow up with a primary care provider. If you already have a primary care provider, please follow up with them. ) [facility] [place] Primary Care, [facility] [Provider Group] (Call to establish and follow up with a primary care provider. If you already have a primary care provider, please follow up with them. ) [facility] [place] [facility] (Call to establish and follow up with a primary care provider. If you already have a primary care provider, please follow up with them. ) [facility] [Physician] - (Call to establish and follow up with a primary care provider. If you already have a primary care provider, please follow up with them. ) Stand Alone Forms: Work/School Release Interventions: ED Discharge Assessment Last Done: 03/24/22 20:11 Discharge Date/Time: 03/24/22 20:13 Print Language: Latvian
[2022-03-24] MEDS: Magnesium Hydrox/Alum Hydrox 30 ML ORAL.SUSP 15 ML PO (20:07)
[2022-03-24] MEDS: Omeprazole 40 MG CAPSULE.DR PO (20:07)
[2022-03-24 20:25] LABS: COVID-19 Test Negative (Negative); IDNOW Serial# 16C4AD1C
== END 2022-03-24 20:13 | disposition home or self-care (01) ==
PROVIDERS: Emergency Provider Internal Medicine
DX: K21.9 Gastro-esophageal reflux disease without esophagitis (principal); Z20.822 Contact with and (suspected) exposure to COVID-19
CPT/HCPCS: 36415; 71046; 80053; 85025; 87635; 99282; 99283

== ENCOUNTER 2023-01-14 16:24 | Emergency (ER) | payer MEDICAID, SELFPAY ==
[2023-01-14 16:40] VITALS: BP 157/109; PULSE 85; RESP 18; TEMP 36; O2SAT 97; BMI 34.8
--- NOTE | 2023-01-14 16:44 | ED.GENADULT ---
HPI - General Adult General Chief complaint: Abdominal Pain Stated complaint: abd pain/vomiting Time Seen by Provider: 01/14/23 22:14 Source: patient Mode of arrival: ambulatory Limitations: no limitations History of Present Illness HPI narrative: Patient with history of nonspecific abdominal pain for years started vomiting and diarrhea since am today unable to hold any solid or liquid down vomited about more than 10 times same number of diarrhea no fever no chills complaining of diffuse abdominal cramping vomit is watery and stool is also watery no blood in the stool Related Data Previous Rx's Medication Instructions Recorded albuterol sulfate 90 mcg/actuation 2 puff inhalation Q6H PRN 07/03/20 aerosol inhaler shortness of breath or wheezing #18 grams cephalexin 500 mg capsule (Keflex) 500 mg PO QID CELLULITIS #28 caps 07/03/20 doxycycline hyclate 100 mg tablet 100 mg PO BID cellulitis #20 tabs 07/03/20 naproxen 500 mg tablet 500 mg PO BID PRN pain #20 tabs 07/03/20 albuterol sulfate 90 mcg/actuation 2 puff inhalation Q4-6H PRN 09/14/20 aerosol inhaler shortness of breath or wheezing #8.5 grams famotidine 20 mg tablet (Pepcid) 20 mg PO BID PRN acid reflux #30 09/14/20 tabs prednisone 20 mg tablet 60 mg PO DAILY 4 days #12 tabs 09/14/20 albuterol sulfate 2.5 mg/3 mL 2.5 mg (3 mL) inhalation Q4-6H PRN 12/27/20 (0.083 %) solution for nebulization bronchospasm #75 mL prednisone 20 mg tablet 60 mg PO DAILY 5 days #15 tabs 12/27/20 albuterol sulfate 90 mcg/actuation 1 inh inhalation QID PRN shortness 03/24/22 aerosol inhaler of breath or wheezing #6.7 grams aluminum-mag hydroxide-simethicone 5 ml PO QID PRN epigastric pain 03/24/22 400 mg-400 mg-40 mg/5 mL oral susp #100 mL (Maalox Maximum Strength) pantoprazole 20 mg tablet,delayed 20 mg PO DAILY #14 tabs 03/24/22 release (Protonix) ondansetron 4 mg disintegrating 4 mg PO Q6-8H PRN nausea and 01/14/23 tablet vomiting #7 tabs Allergies Allergy/AdvReac Type Severity Reaction Status Date / Time No Known Allergies Allergy Verified 01/14/23 16:40 [No Known Allergies*] Review of Systems Review of Systems: Yes all other systems are reviewed and are negative [facility] Past Medical History Medical History Asthma Cocaine substance abuse Social History Social History Alcohol intake: unknown Patient Tobacco Use Status: Never used Tobacco Substance Use Type: Heroin Advance Directives: No Advance Directives Information Provided: No Physical Exam ED Vital Signs: Vital Signs - 24 hr 01/14/23 16:40 01/14/23 23:06 Temperature 96.8 F 98.4 F Pulse Rate 85 65 Respiratory Rate 18 16 Blood Pressure 157/109 H 140/70 H Pulse Oximetry 97 98 Oxygen Delivery Method Room Air Room Air BMI result Body Mass Index 34.8 Appearance: Alert. Oriented X3. No acute distress. Eyes: PERRLA, No Nystagmus ENT: Pharynx normal. Oral Mucosa moist Neck: Normal inspection. Neck supple. CVS: Normal heart rate and rhythm. Pulses normal. Respiratory: No respiratory distress. Equal air entry bilateral, no wheezing/rales/rhonchi Abdomen: Soft diffuse bloating and tenderness no rebound tenderness or guarding Bowel sounds are present, no mass palpable, no CVA tenderness Skin: Skin warm and dry. Normal skin color. Normal skin turgor. Extremities: No lower extremity edema. No calf tenderness Neuro: Oriented X 3. No motor deficit. Course Course Course Narrative: RME- 37-year-old male presents for evaluation of abdominal pain, nausea and vomiting. He reports he can feel a ball in his abdomen plan for labs. Imaging deferred to primary provider Medications Administered Discontinued Medications Generic Name Dose Route Start Last Admin Trade Name Freq PRN Reason Stop Dose Admin Dicyclomine HCl 20 mg 01/14/23 22:41 01/14/23 23:42 Dicyclomine Hcl 10 Mg Capsule PO 01/14/23 22:42 20 mg ONCE ONE Administration Ondansetron HCl 4 mg 01/14/23 22:41 01/14/23 23:42 Ondansetron Odt 4 Mg Tab.Rapdis TRANSLINGU 01/14/23 22:42 4 mg ONCE ONE Administration Medical Decision Making Medical Decision Making MDM Narrative: Patient with stable labs able to drink p.o. fluids likely viral gastroenteritis discharge patient home Lab Data [facility] Lab Attestation statement: I reviewed the patient's lab results. 01/14/23 17:07 01/14/23 17:07 Labs: Lab Results 01/14/23 01/14/23 01/14/23 Range/Units 17:07 17:07 17:08 WBC 11.4 H (4.8-10.8) X10*3/uL RBC 5.67 (4.60-5.80) X10*6/uL Hgb 15.7 (14.0-18.0) g/dl Hct 51.5 (42.0-52.0) % MCV 90.8 (80.0-98.0) fL MCH 27.7 (27.0-33.0) pg MCHC 30.5 L (31.0-36.0) g/dl RDW 11.8 (11.0-16.0) % Plt Count 202 (160-400) X10*3/uL MPV 8.2 L (9.4-12.4) fL Immature Gran % (Auto) 0.4 (0.0-0.4) % Neut % (Auto) 82.6 H (45-73) % Lymph % (Auto) 7.8 L (20-40) % [place] % (Auto) 8.0 (2-11) % Eos % (Auto) 1.0 (0-4) % Baso % (Auto) 0.2 (0-2) % Lymph # (Auto) 0.9 L (1.2-4.9) X10*3/uL [place] # (Auto) 0.9 (0.1-1.2) X10*3/uL Eos # (Auto) 0.1 (0.0-0.4) X10*3/uL Baso # (Auto) 0.0 (0.0-0.2) X10*3/uL Abs Immat Gran (auto) 0.05 H (0.00-0.03) X10*3/uL Absolute Neuts (auto) 9.5 H (2.0-8.3) x10*3/uL Absolute Nucleated RBC 0.000 (0.0-0.012) X10*3/uL Nucleated RBC % (auto) 0.0 (0.0-0.2) /100WBC Sodium 141 (135-145) mmol/L Potassium 4.9 (3.3-5.1) mmol/L Chloride 102 (96-108) mmol/L Carbon Dioxide 34 H (22-29) mmol/L Anion Gap 10 L (12-20) BUN 11 (9-16) mg/dL Creatinine 1.00 (0.5-1.4) mg/dL Estim Creat Clear Calc 113.3 Estimated GFR > 60 Random Glucose 158 H (60-115) mg/dL Lactic Acid 1.8 (0.5-2.0) mmol/L Calcium 10.3 H D (8.4-10.2) mg/dL Total Bilirubin 0.8 (0.0-1.0) mg/dL AST 19 (5-37) U/L ALT 18 (0-40) U/L Alkaline Phosphatase 86 (39-117) U/L Total Protein 8.4 H (6.5-8.0) g/dL Albumin 4.6 (3.5-5.0) g/dL Lipase 29 (8-78) U/L Urine Color Urine Appearance Urine pH (5.0-9.0) Ur Specific [place] (1.005-1.025) Urine Protein (Neg-Trace) mg/dL Urine Glucose (UA) (Negative) mg/dL Urine Ketones (Negative) mg/dL Urine Blood (Negative) Urine Nitrite (Negative) Ur Leukocyte Esterase (Negative) Urine RBC (0-2) /HPF Urine WBC (0-5) /HPF Ur Squamous Epith Cells (0-2) /HPF Urine Bacteria (None Seen) Hyaline Casts (0-2) /LPF 01/14/23 Range/Units 22:10 WBC (4.8-10.8) X10*3/uL RBC (4.60-5.80) X10*6/uL Hgb (14.0-18.0) g/dl Hct (42.0-52.0) % MCV (80.0-98.0) fL MCH (27.0-33.0) pg MCHC (31.0-36.0) g/dl RDW (11.0-16.0) % Plt Count (160-400) X10*3/uL MPV (9.4-12.4) fL Immature Gran % (Auto) (0.0-0.4) % Neut % (Auto) (45-73) % Lymph % (Auto) (20-40) % [place] % (Auto) (2-11) % Eos % (Auto) (0-4) % Baso % (Auto) (0-2) % Lymph # (Auto) (1.2-4.9) X10*3/uL [place] # (Auto) (0.1-1.2) X10*3/uL Eos # (Auto) (0.0-0.4) X10*3/uL Baso # (Auto) (0.0-0.2) X10*3/uL Abs Immat Gran (auto) (0.00-0.03) X10*3/uL Absolute Neuts (auto) (2.0-8.3) x10*3/uL Absolute Nucleated RBC (0.0-0.012) X10*3/uL Nucleated RBC % (auto) (0.0-0.2) /100WBC Sodium (135-145) mmol/L Potassium (3.3-5.1) mmol/L Chloride (96-108) mmol/L Carbon Dioxide (22-29) mmol/L Anion Gap (12-20) BUN (9-16) mg/dL Creatinine (0.5-1.4) mg/dL Estim Creat Clear Calc Estimated GFR Random Glucose (60-115) mg/dL Lactic Acid (0.5-2.0) mmol/L Calcium (8.4-10.2) mg/dL Total Bilirubin (0.0-1.0) mg/dL AST (5-37) U/L ALT (0-40) U/L Alkaline Phosphatase (39-117) U/L Total Protein (6.5-8.0) g/dL Albumin (3.5-5.0) g/dL Lipase (8-78) U/L Urine Color Yellow Urine Appearance Clear Urine pH 5.5 (5.0-9.0) Ur Specific [place] 1.020 (1.005-1.025) Urine Protein 100 (2+) H (Neg-Trace) mg/dL Urine Glucose (UA) Negative (Negative) mg/dL Urine Ketones Trace (Negative) mg/dL Urine Blood Negative (Negative) Urine Nitrite Negative (Negative) Ur Leukocyte Esterase Negative (Negative) Urine RBC 0-2 (0-2) /HPF Urine WBC 0-5 (0-5) /HPF Ur Squamous Epith Cells 0-2 (0-2) /HPF Urine Bacteria None Seen (None Seen) Hyaline Casts 0-2 (0-2) /LPF Discharge Plan Discharge Clinical Impression: Acute gastroenteritis Patient Disposition: Home, Self-Care Instructions: Gastroenteritis (ED) Additional Instructions: Drink plenty of fluids Medicine for nausea as prescribed Follow-up with your PCP if not better Beber mucho l?quido Medicamentos para las n?useas seg?n lo prescrito Tamara un seguimiento con hawkins PCP si no es mejor Prescriptions: New ondansetron 4 mg tablet,disintegrating 4 mg PO Q6-8H PRN (Reason: nausea and vomiting) Qty: 7 0RF No Action cephalexin [Keflex] 500 mg capsule 500 mg PO QID Qty: 28 0RF doxycycline hyclate 100 mg tablet 100 mg PO BID Qty: 20 0RF naproxen 500 mg tablet 500 mg PO BID PRN (Reason: pain) Qty: 20 0RF albuterol sulfate 90 mcg/actuation HFA aerosol inhaler 2 puff inhalation Q6H PRN (Reason: shortness of breath or wheezing) Qty: 18 0RF albuterol sulfate 2.5 mg /3 mL (0.083 %) solution for nebulization 2.5 mg inhalation Q4-6H PRN (Reason: bronchospasm) Qty: 75 0RF prednisone 20 mg tablet 60 mg PO DAILY 5 Days Qty: 15 0RF prednisone 20 mg tablet 60 mg PO DAILY 4 Days Qty: 12 0RF albuterol sulfate 90 mcg/actuation HFA aerosol inhaler 2 puff inhalation Q4-6H PRN (Reason: shortness of breath or wheezing) Qty: 8.5 0RF famotidine [Pepcid] 20 mg tablet 20 mg PO BID PRN (Reason: acid reflux) Qty: 30 0RF albuterol sulfate 90 mcg/actuation HFA aerosol inhaler 1 inh inhalation QID PRN (Reason: shortness of breath or wheezing) Qty: 6.7 0RF alum-mag hydroxide-simeth [Maalox Maximum Strength] 400-400-40 mg/5 mL suspension 5 ml PO QID PRN (Reason: epigastric pain) Qty: 100 0RF pantoprazole [Protonix] 20 mg tablet,delayed release (DR/EC) 20 mg PO DAILY Qty: 14 0RF Print Language: Welsh
[2023-01-14 17:15] LABS: MANUAL DIFF FLAG NO
[2023-01-14 17:26] LABS: Basophils Percent Auto 0.2 % (0-2); Eosinophils Absolute Auto 0.1 X10*3/uL (0.0-0.4); Hematocrit 51.5 % (42.0-52.0); Hemoglobin 15.7 g/dl (14.0-18.0); Imm Gran Abs Auto 0.05 X10*3/uL (0.00-0.03); Imm Gran Pct Auto 0.4 % (0.0-0.4); Lymphocytes Absolute Auto 0.9 X10*3/uL (1.2-4.9); Lymphocytes Percent Auto 7.8 % (20-40); Mean Corpuscular HGB Conc 30.5 g/dl (31.0-36.0); Mean Corpuscular Hemoglobin 27.7 pg (27.0-33.0); Mean Corpuscular Volume 90.8 fL (80.0-98.0); Mean Platelet Volume 8.2 fL (9.4-12.4); Monocytes Absolute Auto 0.9 X10*3/uL (0.1-1.2); Neutrophils Absolute Auto 9.5 x10*3/uL (2.0-8.3); Neutrophils Percent Auto 82.6 % (45-73); Platelet Count 202 X10*3/uL (160-400); Red Blood Count 5.67 X10*6/uL (4.60-5.80); Red Cell Distribution Width 11.8 % (11.0-16.0); White Blood Count 11.4 X10*3/uL (4.8-10.8)
[2023-01-14 17:29] LABS: Lactic Acid 1.8 mmol/L (0.5-2.0)
[2023-01-14 17:33] LABS: Alanine Aminotransferase 18 U/L (0-40); Albumin Level 4.6 g/dL (3.5-5.0); Alkaline Phosphatase 86 U/L (39-117); Anion Gap 10 (12-20); Aspartate Amino Transferase 19 U/L (5-37); Bilirubin Total 0.8 mg/dL (0.0-1.0); Blood Urea Nitrogen 11 mg/dL (9-16); Calcium 10.3 mg/dL (8.4-10.2); Carbon Dioxide 34 mmol/L (22-29); Chloride 102 mmol/L (96-108); Creatinine Clr Calc Pharmacy 113.3; Estimated Glomerular Filt Rate > 60; Glucose Random 158 mg/dL (60-115); Lipase 29 U/L (8-78); Potassium 4.9 mmol/L (3.3-5.1); Sodium 141 mmol/L (135-145); Total Protein 8.4 g/dL (6.5-8.0)
[2023-01-14 22:16] LABS: Appearance Urine Clear; Color Urine Yellow; Glucose Urine UA Negative (Negative); Leukocyte Esterase Urine Negative (Negative); Nitrite Urine Negative (Negative); PH 5.5 (5.0-9.0); UMIC TRIGGER UACC YES; Urine Blood Negative (Negative); Urine Ketones Trace mg/dL (Negative); Urine Protein 100 (2+) mg/dL (Neg-Trace)
[2023-01-14 22:18] LABS: Bacteria Urine None Seen (None Seen); Hyaline Casts Urine 0-2 /LPF (0-2); RBC Urine 0-2 /HPF (0-2); Squamous Epithelial Cell Urine 0-2 /HPF (0-2); WBC Urine 0-5 /HPF (0-5)
[2023-01-14 23:06] VITALS: BP 140/70; PULSE 65; RESP 16; TEMP 36.9; O2SAT 98
[2023-01-14] MEDS: Dicyclomine HCl 10 MG CAPSULE 20 MG PO (23:42)
[2023-01-14] MEDS: Ondansetron ODT 4 MG TAB.RAPDIS TRANSLINGU (23:42)
== END 2023-01-15 00:06 | disposition home or self-care (01) ==
PROVIDERS: Physician Assistant; Emergency Provider Internal Medicine
DX: K52.9 Noninfective gastroenteritis and colitis, unspecified (principal); Z79.899 Other long term (current) drug therapy
CPT/HCPCS: 36415; 80053; 81001; 83605; 83690; 85025; 99283

== ENCOUNTER 2023-09-25 22:45 | Emergency (ER) | payer SELFPAY ==
--- NOTE | ~2023-09-25 | CT_ITS ---
EXAMINATION: CT ABDOMEN AND PELVIS WITHOUT CONTRAST CLINICAL INFORMATION: Left flank pain. COMPARISON: None available. TECHNIQUE: Multidetector volumetric imaging was performed from the superior aspect of the liver through the pubic symphysis. Sagittal and coronal reformatted images were obtained on the technologist's workstation. This CT examination was performed using dose optimization techniques as appropriate, variously including the following: *Automated exposure control *Adjustment of mA and/or kV according to patient size (this includes techniques or standardized protocols for targeted exams where dose is matched to indication/reason for exam; i.e. extremities or head) *Use of iterative reconstruction technique DLP: 606 mGy-cm FINDINGS: LUNG BASES: The visualized lung bases are unremarkable. LIVER, GALLBLADDER, AND BILIARY TREE: The liver is normal in size, shape, and attenuation. No focal hepatic lesion or biliary ductal dilatation is present. The gallbladder is unremarkable with no evidence of radiopaque gallstones, gallbladder wall thickening, or obvious pericholecystic inflammatory changes. PANCREAS: The pancreas is atrophic for patient age. SPLEEN: Unremarkable. ADRENAL GLANDS: Unremarkable. KIDNEYS AND URETERS: The kidneys are normal in size, shape, and attenuation. There are scattered 1 to 2 mm left renal calculi. There is mild left hydronephrosis and hydroureter extending into the pelvis to the level of a 3.5 to 4 mm left ureterovesicular junction calculus. BLADDER: Unremarkable. GASTROINTESTINAL TRACT: The small and large bowel are unremarkable. The appendix is not seen. ABDOMINAL WALL: No significant hernia is appreciated. LYMPH NODES: Normal. VASCULAR: Unremarkable. PELVIC VISCERA: Unremarkable. OSSEOUS STRUCTURES: Unremarkable. CT/CT abdomen pelvis wo IV con IMPRESSION: 1. There is a 3.5 to 4 mm left ureterovesicular junction calculus with associated mild left hydronephrosis and hydroureter. 2. There are scattered 1 to 2 mm left renal calculi. 3. Atrophic pancreas for patient age. Fleischner guidelines were followed.
[2023-09-25 22:59] VITALS: BP 184/115; PULSE 93; RESP 20; TEMP 37.6; O2SAT 97; BMI 27.4
[2023-09-25 23:21] LABS: MANUAL DIFF FLAG NO
[2023-09-25 23:29] LABS: Eosinophils Absolute Auto 0.1 X10*3/uL (0.0-0.4); Eosinophils Percent Auto 1.7 % (0-4); Hemoglobin 15.4 g/dl (14.0-18.0); Imm Gran Abs Auto 0.02 X10*3/uL (0.00-0.03); Imm Gran Pct Auto 0.3 % (0.0-0.4); Lymphocytes Absolute Auto 1.3 X10*3/uL (1.2-4.9); Lymphocytes Percent Auto 17.6 % (20-40); Mean Corpuscular HGB Conc 31.4 g/dl (31.0-36.0); Mean Corpuscular Hemoglobin 27.5 pg (27.0-33.0); Mean Corpuscular Volume 87.3 fL (80.0-98.0); Mean Platelet Volume 8.3 fL (9.4-12.4); Monocytes Absolute Auto 0.5 X10*3/uL (0.1-1.2); Monocytes Percent Auto 6.6 % (2-11); Neutrophils Absolute Auto 5.5 x10*3/uL (2.0-8.3); Neutrophils Percent Auto 73.8 % (45-73); Platelet Count 191 X10*3/uL (160-400); Red Blood Count 5.61 X10*6/uL (4.60-5.80); Red Cell Distribution Width 12.3 % (11.0-16.0); White Blood Count 7.5 X10*3/uL (4.8-10.8)
[2023-09-25 23:38] LABS: Alanine Aminotransferase 20 U/L (0-40); Albumin Level 4.1 g/dL (3.5-5.0); Alkaline Phosphatase 81 U/L (39-117); Anion Gap 12 (12-20); Aspartate Amino Transferase 21 U/L (5-37); Bilirubin Direct 0.4 mg/dL (0.0-0.5); Bilirubin Total 0.9 mg/dL (0.0-1.0); Blood Urea Nitrogen 13 mg/dL (9-16); Calcium 9.4 mg/dL (8.4-10.2); Carbon Dioxide 29 mmol/L (22-29); Chloride 102 mmol/L (96-108); Estimated Glomerular Filt Rate 58; Glucose Random 162 mg/dL (60-115); Potassium 4.1 mmol/L (3.3-5.1); Sodium 139 mmol/L (135-145); Total Protein 7.5 g/dL (6.5-8.0)
[2023-09-26 00:21] VITALS: BP 182/105; PULSE 74; RESP 18; TEMP 38; O2SAT 97
--- NOTE | 2023-09-26 00:45 | MHC.EDTECH ---
Patient urine sample collected and sent to lab .
[2023-09-26 00:50] LABS: Appearance Urine Clear; Color Urine Yellow; Glucose Urine UA Negative (Negative); Leukocyte Esterase Urine Negative (Negative); Nitrite Urine Negative (Negative); PH 6.5 (5.0-9.0); UMIC TRIGGER UACC YES; Urine Blood Large (3+) (Negative); Urine Ketones Trace mg/dL (Negative); Urine Protein 100 (2+) mg/dL (Neg-Trace)
[2023-09-26 00:52] LABS: Bacteria Urine None Seen (None Seen); Hyaline Casts Urine 0-2 /LPF (0-2); RBC Urine >20 /HPF (0-2); Squamous Epithelial Cell Urine 0-2 /HPF (0-2); WBC Urine 0-5 /HPF (0-5)
[2023-09-26 01:02] LABS: Amphetamine Screen Urine Not Detected (Not Detect); Barbiturates, Urine Not Detected (Not Detect); Benzodiazepines Screen Urine POSITIVE (Not Detect); Cannabinoid Screen Urine Not Detected (Not Detect); Cocaine Screen Urine POSITIVE (Not Detect); Fentanyl, urine POSITIVE (Not Detect); Opiate Screen Urine POSITIVE (Not Detect); Phencyclidine Screen Urine Not Detected (Not Detect)
--- NOTE | 2023-09-26 01:20 | ED_ITS ---
HPI - General Adult General Chief complaint: General Medical Stated complaint: back pain Time Seen by Provider: 09/26/23 00:56 Source: patient and technical consultant Mode of arrival: ambulatory Limitations: no limitations History of Present Illness HPI narrative: 38-year-old male came in for evaluation of left flank pain started 1 day ago. Pain is in the left flank area radiates down to the left lower quadrant area, no nausea, no vomiting, reports no prior intra-abdominal surgery. No hematuria, no frequency urination, no dysuria, no fever, no chills, last bowel movement was yesterday and was normal. No CP, no SOB. Related Data Previous Rx's ?Medication ?Instructions ?Recorded albuterol sulfate 90 mcg/actuation 2 puff inhalation Q6H PRN 07/03/20 aerosol inhaler shortness of breath or wheezing #18 grams cephalexin 500 mg capsule (Keflex) 500 mg PO QID CELLULITIS #28 caps 07/03/20 doxycycline hyclate 100 mg tablet 100 mg PO BID cellulitis #20 tabs 07/03/20 naproxen 500 mg tablet 500 mg PO BID PRN pain #20 tabs 07/03/20 albuterol sulfate 90 mcg/actuation 2 puff inhalation Q4-6H PRN 09/14/20 aerosol inhaler shortness of breath or wheezing #8.5 grams famotidine 20 mg tablet (Pepcid) 20 mg PO BID PRN acid reflux #30 09/14/20 tabs prednisone 20 mg tablet 60 mg (3 x 20 mg) PO DAILY 4 days 09/14/20 #12 tabs albuterol sulfate 2.5 mg/3 mL 2.5 mg (3 mL) inhalation Q4-6H PRN 12/27/20 (0.083 %) solution for nebulization bronchospasm #75 mL prednisone 20 mg tablet 60 mg (3 x 20 mg) PO DAILY 5 days 12/27/20 #15 tabs albuterol sulfate 90 mcg/actuation 1 inh inhalation QID PRN shortness 03/24/22 aerosol inhaler of breath or wheezing #6.7 grams aluminum-mag hydroxide-simethicone 5 ml PO QID PRN epigastric pain 03/24/22 400 mg-400 mg-40 mg/5 mL oral susp #100 mL (Maalox Maximum Strength) pantoprazole 20 mg tablet,delayed 20 mg PO DAILY #14 tabs 03/24/22 release (Protonix) ondansetron 4 mg disintegrating 4 mg PO Q6-8H PRN nausea and 01/14/23 tablet vomiting #7 tabs amlodipine 2.5 mg tablet 2.5 mg PO DAILY #30 tabs 09/26/23 ibuprofen 600 mg tablet 600 mg PO Q8H PRN pain #10 tabs 09/26/23 prednisone 20 mg tablet 20 mg PO BID #10 tabs 09/26/23 tamsulosin 0.4 mg capsule (Flomax) 0.4 mg PO DAILY #10 caps 09/26/23 Allergies Allergy/AdvReac Type Severity Reaction Status Date / Time No Known Allergies Allergy Verified 09/25/23 22:59 [No Known Allergies*] Review of Systems 2 Review of Systems: All other systems are reviewed and are negative Constitutional: Reports as per HPI and Reports no additional constitutional complaints Eyes: Reports as per HPI and Reports no additional eye complaints Reports system reviewed and no additional complaints, except as documented Cardiovascular: Reports as per HPI and Reports no additional cardiovascular complaints Respiratory: Reports as per HPI and Reports no additional respiratory complaints Gastrointestinal: Reports as per HPI and Reports no additional gastrointestinal complaints Genitourinary: Reports no additional female genitourinary complaints Musculoskeletal: Reports no additional musculoskeletal complaints Skin/Breast: Reports system reviewed and no additional complaints, except as docu Psychiatric: Reports no additional psychiatric complaints Endocrine: Reports no additional endocrine complaints Hematologic/Lymphatic: Reports no additional hematologic/lymphatic complaints Allergic/Immunologic: Reports no additional allergic/immunologic complaints Reports system reviewed and no additional complaints, except as documented and Reports Abnormal speech present [facility] Past Medical History Medical History Cocaine substance abuse Asthma Social History Social History Unable to assess alcohol history related to: Refusing to respond Alcohol intake: unknown Patient Tobacco Use Status: Never used Tobacco Smoked in Last 30 Days: Yes Use of substances other than those prescribed or required for medical reasons: Yes Substance Use Type: Opiates Substance Use Frequency: Daily Advance Directives: No Advance Directives Information Provided: Yes Physical Exam ED Vital Signs: Vital Signs - 24 hr 09/25/23 22:59 09/26/23 00:21 09/26/23 01:37 Temperature 99.7 F 100.4 F 99.4 F Pulse Rate 93 74 73 Respiratory Rate 20 18 16 Blood Pressure 184/115 H 182/105 H 212/115 H Pulse Oximetry 97 97 100 Oxygen Delivery Method Room Air Room Air Room Air 09/26/23 02:45 09/26/23 06:06 Temperature 99.3 F 98.9 F Pulse Rate 72 74 Respiratory Rate 18 16 Blood Pressure 160/98 H 181/105 H Pulse Oximetry 98 96 Oxygen Delivery Method Room Air Room Air BMI result Body Mass Index 27.4 Vital signs have been reviewed and appear to be correct. Blood pressure elevated. Heart rate normal. Respiratory rate normal. Temperature normal. Oxygen saturation normal. Appearance: Alert. Oriented X3. No acute distress. Head: Normal external exam. Normocephalic. Atraumatic. No Rosen signs noted. No raccoon eyes noted Eyes: PERRLA. EOMI. Conjunctiva and sclera normal. Eyelids normal. ENT: TM's Normal. Pharynx normal. Uvula midline. Moist mucous membranes. No trismus noted. No drooling noted. No muffled voice noted. Neck: Normal inspection. Neck supple. FROM. No adenopathy. Thyroid Normal. No meningeal signs. No neck mass noted. CVS: Normal heart rate and rhythm. Heart sound normal. No murmurs noted. Pulses normal throughout. Respiratory: No respiratory distress. Painless inspiration. Breath sounds normal. No wheezes/rales/rhonchi noted. Chest nontender. No accessory muscle usage noted or decreased air movement noted. Abdomen: Soft and nontender. Bowel sounds normal in all 4 quadrants. No distention noted. No organomegaly noted. No visible injury noted. Back: Left CVA tenderness. Full range of motion noted. Skin: Skin warm and dry. Normal skin color. Normal skin turgor. No rashes/lesions/lacerations noted. Extremities: No lower extremity edema. Extremities exhibit normal range of motion. Extremities nontender. Neuro: Oriented X 3. Cranial nerve exam: II-XII are grossly intact No motor deficit. No sensory deficit. Reflexes normal. Course Reevaluation(s) Reevaluation #1: 38-year-old male came in with left flank pain CT/UA is consistent with less than 4 mm left UVJ stone, will start the patient on prednisone/Flomax/ibuprofen and follow-up with Dr. Newsome as an outpatient. Patient also found to have asymptomatic hypertension responded well to amlodipine we will discharge on amlodipine 5 mg daily and follow-up with PCP. Time: 07:17 Medications Administered Discontinued Medications Generic Name Dose Route Start Last Admin Trade Name Freq PRN Reason Stop Dose Admin Amlodipine Besylate 5 mg 09/26/23 01:49 09/26/23 01:52 Amlodipine Besylate 5 Mg Tablet PO 09/26/23 01:50 5 mg ONCE ONE Administration Protocol Ketorolac Tromethamine 30 mg 09/26/23 01:14 09/26/23 01:37 Ketorolac Tromethamine 30 Mg/Ml Vial IVPUSH 09/26/23 01:15 30 mg ONCE ONE Administration Medical Decision Making Differential Diagnosis Differential Diagnoses: The differential diagnosis associated with the presentation includes (UTI, pyelonephritis, obstructive uropathy, colitis, diverticulitis, acute cholecystitis, electrolyte derangement, severe anemia, hypertensive urgency, hypertensive emergency.) Admission/Observation Consideration of admission/observation: Escalation of care including admission/observation considered Lab Data MDM Lab Attestation statement: I reviewed the patient's lab results. 09/25/23 23:16 09/25/23 23:17 Labs: Lab Results 09/25/23 09/25/23 09/26/23 Range/Units 23:16 23:17 00:44 WBC 7.5 (4.8-10.8) X10*3/uL RBC 5.61 (4.60-5.80) X10*6/uL Hgb 15.4 (14.0-18.0) g/dl Hct 49.0 (42.0-52.0) % MCV 87.3 (80.0-98.0) fL MCH 27.5 (27.0-33.0) pg MCHC 31.4 (31.0-36.0) g/dl RDW 12.3 (11.0-16.0) % Plt Count 191 (160-400) X10*3/uL MPV 8.3 L (9.4-12.4) fL Immature Gran % (Auto) 0.3 (0.0-0.4) % Neut % (Auto) 73.8 H (45-73) % Lymph % (Auto) 17.6 L (20-40) % [place] % (Auto) 6.6 (2-11) % Eos % (Auto) 1.7 (0-4) % Baso % (Auto) 0.0 (0-2) % Lymph # (Auto) 1.3 (1.2-4.9) X10*3/uL [place] # (Auto) 0.5 (0.1-1.2) X10*3/uL Eos # (Auto) 0.1 (0.0-0.4) X10*3/uL Baso # (Auto) 0.0 (0.0-0.2) X10*3/uL Abs Immat Gran (auto) 0.02 (0.00-0.03) X10*3/uL Absolute Neuts (auto) 5.5 (2.0-8.3) x10*3/uL Absolute Nucleated RBC 0.000 (0.0-0.012) X10*3/uL Nucleated RBC % (auto) 0.0 (0.0-0.2) /100WBC Sodium 139 (135-145) mmol/L Potassium 4.1 (3.3-5.1) mmol/L Chloride 102 (96-108) mmol/L Carbon Dioxide 29 (22-29) mmol/L Anion Gap 12 (12-20) BUN 13 (9-16) mg/dL Creatinine 1.37 (0.5-1.4) mg/dL Estim Creat Clear Calc 70.0 Estimated GFR 58 Random Glucose 162 H (60-115) mg/dL Calcium 9.4 D (8.4-10.2) mg/dL Total Bilirubin 0.9 (0.0-1.0) mg/dL Direct Bilirubin 0.4 (0.0-0.5) mg/dL AST 21 (5-37) U/L ALT 20 (0-40) U/L Alkaline Phosphatase 81 (39-117) U/L Total Protein 7.5 (6.5-8.0) g/dL Albumin 4.1 (3.5-5.0) g/dL Lipase 8 (8-78) U/L Urine Color Yellow Urine Appearance Clear Urine pH 6.5 (5.0-9.0) Ur Specific [place] 1.020 (1.005-1.025) Urine Protein 100 (2+) H (Neg-Trace) mg/dL Urine Glucose (UA) Negative (Negative) mg/dL Urine Ketones Trace (Negative) mg/dL Urine Blood Large (3+) H (Negative) Urine Nitrite Negative (Negative) Ur Leukocyte Esterase Negative (Negative) Urine RBC >20 H (0-2) /HPF Urine WBC 0-5 (0-5) /HPF Ur Squamous Epith Cells 0-2 (0-2) /HPF Urine Bacteria None Seen (None Seen) Hyaline Casts 0-2 (0-2) /LPF Urine Opiates Screen POSITIVE H (Not Detect) Urine Fentanyl Screen POSITIVE H (Not Detect) Ur Barbiturates Screen Not Detected (Not Detect) Ur Phencyclidine Scrn Not Detected (Not Detect) Ur Amphetamines Screen Not Detected (Not Detect) U Benzodiazepines Scrn POSITIVE H (Not Detect) Urine Cocaine Screen POSITIVE H (Not Detect) U Marijuana (THC) Screen Not Detected (Not Detect) Independent Interpretation I performed an independent interpretation of an: CT Scan (Abdomen pelvis:1. There is a 3.5 to 4 mm left ureterovesicular junction calculus with associated mild left hydronephrosis and hydroureter. 2. There are scattered 1 to 2 mm left renal calculi. 3. Atrophic pancreas for patient age. ) Radiology Impression Discussion of test interpretation with radiology: I have reviewed the radiologist's reading. Chronic Conditions Patient?s care impacted by: Hypertension Discharge Plan Discharge Clinical Impression: Hypertension, Renal colic on left side Patient Disposition: Home, Self-Care Instructions: Renal Colic (ED), Hypertension (ED) Prescriptions: New prednisone 20 mg tablet 20 mg PO BID Qty: 10 0RF tamsulosin [Flomax] 0.4 mg capsule 0.4 mg PO DAILY Qty: 10 0RF ibuprofen 600 mg tablet 600 mg PO Q8H PRN (Reason: pain) Qty: 10 0RF amlodipine 2.5 mg tablet 2.5 mg PO DAILY Qty: 30 0RF No Action cephalexin [Keflex] 500 mg capsule 500 mg PO QID Qty: 28 0RF doxycycline hyclate 100 mg tablet 100 mg PO BID Qty: 20 0RF naproxen 500 mg tablet 500 mg PO BID PRN (Reason: pain) Qty: 20 0RF albuterol sulfate 90 mcg/actuation HFA aerosol inhaler 2 puff inhalation Q6H PRN (Reason: shortness of breath or wheezing) Qty: 18 0RF albuterol sulfate 2.5 mg /3 mL (0.083 %) solution for nebulization 2.5 mg inhalation Q4-6H PRN (Reason: bronchospasm) Qty: 75 0RF prednisone 20 mg tablet 60 mg PO DAILY 5 Days Qty: 15 0RF prednisone 20 mg tablet 60 mg PO DAILY 4 Days Qty: 12 0RF albuterol sulfate 90 mcg/actuation HFA aerosol inhaler 2 puff inhalation Q4-6H PRN (Reason: shortness of breath or wheezing) Qty: 8.5 0RF famotidine [Pepcid] 20 mg tablet 20 mg PO BID PRN (Reason: acid reflux) Qty: 30 0RF albuterol sulfate 90 mcg/actuation HFA aerosol inhaler 1 inh inhalation QID PRN (Reason: shortness of breath or wheezing) Qty: 6.7 0RF alum-mag hydroxide-simeth [Maalox Maximum Strength] 400-400-40 mg/5 mL suspension 5 ml PO QID PRN (Reason: epigastric pain) Qty: 100 0RF pantoprazole [Protonix] 20 mg tablet,delayed release (DR/EC) 20 mg PO DAILY Qty: 14 0RF ondansetron 4 mg tablet,disintegrating 4 mg PO Q6-8H PRN (Reason: nausea and vomiting) Qty: 7 0RF [facility] - Print Language: Cymro
[2023-09-26 01:37] VITALS: BP 212/115; PULSE 73; RESP 16; TEMP 37.4; O2SAT 100
[2023-09-26] MEDS: Ketorolac Tromethamine 30 MG/ML VIAL IVPUSH (01:37)
[2023-09-26 01:42] LABS: Lipase 8 U/L (8-78)
[2023-09-26] MEDS: amLODIPine Besylate 5 MG TABLET PO (01:52)
[2023-09-26 02:45] VITALS: BP 160/98; PULSE 72; RESP 18; TEMP 37.4; O2SAT 98
--- NOTE | 2023-09-26 02:46 | MHC.EDTECH ---
VITALS TAKEN ,BERONICA MAI IS AWARE THE PATIENT BLOOD PRESSURE WENT DOWN FROM BEFORE ,PT COMFORTABLE SLEEPING .
[2023-09-26 06:06] VITALS: BP 181/105; PULSE 74; RESP 16; TEMP 37.2; O2SAT 96
--- NOTE | 2023-09-26 06:09 | MHC.EDTECH ---
0600 ROUNDING DONE ,VITALS TAKEN ,RN PAU IS AWARE THAT PATIENT BLOOD PRESSURE IS HIGH ,PATIENT SLEEPING .
--- NOTE | 2023-09-26 06:14 | PC.NURSE ---
MD Bashir is aware of patients high BPs.
[2023-09-26 08:37] VITALS: BP 181/102; PULSE 76; RESP 14; TEMP 37.4; O2SAT 93
[2023-09-26 09:47] VITALS: BP 181/102; PULSE 76; RESP 16; TEMP 37.4; O2SAT 94
== END 2023-09-26 09:47 | disposition home or self-care (01) ==
PROVIDERS: Emergency Provider Emergency Medicine
DX: N23 Unspecified renal colic (principal); F11.20 Opioid dependence, uncomplicated; I10 Essential (primary) hypertension; Z51.81 Encounter for therapeutic drug level monitoring; Z79.899 Other long term (current) drug therapy
CPT/HCPCS: 36415; 74176; 80048; 80076; 80307; 81001; 83690; 85025; 96374; 99284; J1885